=== PATIENT | female | born 1960 | race Caucasian/White ===

== ENCOUNTER 2016-07-23 12:44 | Emergency (ER) | payer BC ==
[2016-07-23 12:57] VITALS: BP 134/81
--- NOTE | 2016-07-23 13:22 | EDM.PDOC ---
ED HPI GENERAL MEDICAL PROBLEM - General Chief Complaint: General Stated Complaint: COLD?/ Time Seen by Provider: 07/23/16 13:00 Source of Information: Reports: Patient - History of Present Illness INITIAL COMMENTS - FREE TEXT/NARRATIVE: Patient comes in today with complaints of cough runny nose headache chills and low-grade fever over the last 48 hours. She was seen in clinic approximately 2 weeks ago with influenza-type symptoms and was treated with Tamiflu. Her influenza test was negative at the time. She reports she felt much better. Once again she started feeling sick again and reports that her work made her come in to get evaluated and seen in she wasn't going to come to work today. She has no other complaints of voice. She is a pack-a-day smoker. He denies any abdominal pain no nausea or vomiting, no diarrhea, no GI symptoms. Her cough has been nonproductive. She is treated her symptoms with DayQuil, NyQuil and Tylenol. This is given her some relief of her symptoms. Onset: gradual Onset Date: 07/21/16 Duration: Day(s):, Constant Location: Reports: head, face Quality: Reports: Ache Severity: moderate Improves with: Reports: Rest Worsens with: Reports: Movement Associated Symptoms: Reports: cough, fever/chills, headaches, loss of appetite. Denies: confusion, chest pain, cough w sputum, diaphoresis, nausea/vomiting, shortness of breath Treatments WOOL BROKER: Reports: Acetaminophen, Other (see below) Other Treatments WOOL BROKER: day quil, nyquil Bilateral Ear Pain Score (Numeric/FACES): 8 - Related Data Allergies Allergy/AdvReac Type Severity Reaction Status Date / Time Penicillins Allergy Anaphylactic Verified 07/23/16 12:57 Shock Home Meds: Home Meds Multivit-Min/FA/Lycopene/Lut [Centrum Silver] 1 tab PO DAILY 05/13/14 [History] Realitos-3/DHA/Epa/Fish Oil [Fish Oil 1,000 mg Softgel] 1 each PO TID 05/13/14 [ History] Ondansetron [IJD: Ondansetron ODT] 4 mg PO Q4H PRN 07/23/16 [History] Social & Family History - Tobacco Use Smoking Status *Q: Current Every Day Smoker Years of Tobacco use: 42 Packs/Tins Daily: 1 Second Hand Smoke Exposure: Yes - Caffeine Use Caffeine Use: Reports: Coffee, Tea - Alcohol Use Days Per Week of Alcohol Use: 1 Number of Drinks Per Day: 1 Total Drinks Per Week: 1 - Recreational Drug Use Recreational Drug Use: Yes Drug Use in Last 12 Months: No Recreational Drug Type: Reports: Amphetamines (Speed), Barbituates, Benzodiazepines, Cocaine, Codiene, LSD (Acid), Marijuana/Hashish, Mescaline, Psilocybin (Mushrooms) - Living Situation & Occupation Living situation: Reports: single (2 children), with family (lives with 28-year- old son) 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 ED EXAM, GENERAL - Physical Exam Exam: See Below Exam Limited By: No limitations General Appearance: alert, WD/WN, no apparent distress Eye Exam: bilateral eye: EOMI, PERRL Ears: normal external exam, normal canal, hearing grossly normal, other (there is mild redness in the left ear but the TMs are clearly present as well as a bony markings) Ear Exam: left ear: TM red, right ear: TM normal Nose: normal inspection, normal mucosa, no blood Throat/Mouth: Normal inspection, Normal lips, Normal gums, Normal oropharynx, Normal voice, No airway compromise, Other (dentures) Head: atraumatic, normocephalic, sinus tenderness. No: facial swelling Neck: normal inspection, supple, non-tender, full range of motion. No: lymphadenopathy (L), lymphadenopathy (R) Respiratory/Chest: no respiratory distress, lungs clear, normal breath sounds, no accessory muscle use Cardiovascular: normal peripheral pulses, regular rate, rhythm, no murmur GI/Abdominal: normal bowel sounds, soft, non tender, no organomegaly, no distention, no mass Back Exam: normal inspection Extremities: normal inspection, normal range of motion Neurological: alert, oriented, normal cognition, normal gait Psychiatric: normal affect, depressed mood Skin Exam: Warm, Dry, Intact, Normal color, No rash Lymphatic: no adenopathy Course - Vital Signs Last Recorded V/S: Last Vital Signs Temp 97.6 F 07/23/16 12:48 Pulse 77 07/23/16 12:48 Resp 18 07/23/16 12:48 BP 134/81 07/23/16 12:48 Pulse Ox 97 07/23/16 12:48 Departure - Departure Time of Disposition: 14:02 Disposition: Home, Self-Care 01 Condition: good Clinical Impression: Upper respiratory infection Qualifiers: URI type: unspecified viral URI Qualified Code(s): J06.9 - Acute upper respiratory infection, unspecified; B97.89 - Other viral agents as the cause of diseases classified elsewhere Forms: ED Department Discharge - Assessment/Plan Assessment:: Upper respiratory infection viral Plan: 1. rest 2. Push oral hydration 3. Symptomatic treatment with use of DayQuil, NyQuil, Tylenol 4. Talked with the patient about smoking cessation. 5. Followup with your primary care if symptoms persist throughout next week if no improvement.
== END 2016-07-23 14:15 | disposition home or self-care (01) ==
LOC: KA.ED 12:44
DX: J06.9 Acute upper respiratory infection, unspecified (principal); B97.89 Other viral agents as the cause of diseases classified elsewhere; F17.210 Nicotine dependence, cigarettes, uncomplicated
CPT/HCPCS: 36415; 85025; 87804; 99283

== ENCOUNTER 2017-05-03 13:35 | Emergency (ER) | payer BC, MEDICAID ==
[2017-05-03] MEDS ORDERED: Lidocaine 1% 20 ML MDV INJECT ONE (14:00)
[2017-05-03 14:08] VITALS: BP 144/88
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
[2017-05-03] MEDS ORDERED: Lidocaine 1% 20 ML MDV ONE (14:31)
[2017-05-03] MEDS ORDERED: Bacitracin/Neomycin/Polymyxin B Oint 0.9 GM U/D Packet ONE (14:34)
[2017-05-03] MEDS ORDERED: Bacitracin/Neomycin/Polymyxin B Oint 0.9 GM U/D Packet TOP ONE (14:59)
[2017-05-03] MEDS ORDERED: Diphtheria,Pertussis(Acell),Tetanus Vaccine 0.5 ML SDV IM ONE (14:59)
== END 2017-05-03 15:15 | disposition home or self-care (01) ==
LOC: KA.ED 13:35
DX: S61.250A Open bite of right index finger without damage to nail, initial encounter (principal); F32.9 Major depressive disorder, single episode, unspecified; F17.210 Nicotine dependence, cigarettes, uncomplicated; Z88.0 Allergy status to penicillin; Z79.899 Other long term (current) drug therapy; Z23 Encounter for immunization; W54.0XXA Bitten by dog, initial encounter
CPT/HCPCS: 73090-RT; 73140-F6; 90471; 90715; 99283

== ENCOUNTER 2017-07-16 09:09 | Day surgery (SDC) | payer BC, MEDICAID ==
[~2017-07-16 09:09] MED LIST: Lactated Ringers 1,000 ML IV SCH; Lactated Ringers 1,000 ML ONE; Sodium Chloride 0.9% 5 ML Syringe FLUSH PRN
[2017-07-16] MEDS ORDERED: Propofol 200 MG/20 ML SDV ONE (09:12)
[2017-07-16] MEDS ORDERED: fentaNYL 250 MCG/5 ML SDV ONE (09:12)
[2017-07-16] MEDS ORDERED: Sodium Chloride 0.9% 100 ML ONE (09:12)
[2017-07-16] MEDS ORDERED: Midazolam 1 MG/ML 2 ML SDV ONE (09:12)
[2017-07-16] MEDS ORDERED: Gentamicin 40 MG/ML 2 ML Vial ONE (09:12)
[2017-07-16] MEDS ORDERED: Bupivacaine 0.5%/EPINEPHrine 1:200,000 30 ML SDV ONE (09:33)
[2017-07-16] MEDS ORDERED: Midazolam 1 MG/ML 2 ML SDV IV ONE (10:40)
[2017-07-16] MEDS ORDERED: Neostigmine Methylsulfate 10 MG/10 ML MDV IV ONE (10:40)
[2017-07-16] MEDS ORDERED: Ondansetron 4 MG/2 ML SDV IV ONE (10:40)
[2017-07-16] MEDS ORDERED: Succinylcholine 200 MG/10 ML MDV IV ONE (10:40)
[2017-07-16] MEDS ORDERED: Gentamicin 40 MG/ML 2 ML Vial IV ONE (10:40)
[2017-07-16] MEDS ORDERED: Glycopyrrolate 0.2 MG/ML 5 ML MDV IV ONE (10:40)
[2017-07-16] MEDS ORDERED: fentaNYL 250 MCG/5 ML SDV IV ONE (10:40)
[2017-07-16] MEDS ORDERED: Propofol 200 MG/20 ML SDV IV ONE (10:40)
[2017-07-16] MEDS ORDERED: Rocuronium 50 MG/5 ML Vial IV ONE (10:40)
[2017-07-16] MEDS ORDERED: Dexamethasone 4 MG/ML SDV IV ONE (10:40)
[2017-07-16] MEDS ORDERED: Lactated Ringers 1,000 ML ONE (10:48)
[2017-07-16] MEDS ORDERED: Dexamethasone 4 MG/ML SDV ONE (10:48)
[2017-07-16] MEDS ORDERED: Bupivacaine 0.5%/EPINEPHrine 1:200,000 30 ML SDV INFILT ONE ×2 (10:59)
[2017-07-16] MEDS ORDERED: Morphine 4 MG/ML Syringe IVPUSH PRN (11:24)
[2017-07-16] MEDS ORDERED: Ondansetron 4 MG/2 ML SDV IVPUSH PRN (11:24)
[2017-07-16] MEDS ORDERED: Morphine 2 MG/ML Syringe IVPUSH PRN (11:25)
[2017-07-16] MEDS ORDERED: fentaNYL 100 MCG/2 ML SDV IVPUSH PRN (11:25)
--- NOTE | 2017-07-16 12:25 | PCM.OPNOTE ---
- General Post-Op/Procedure Note Date of Surgery/Procedure: 07/16/17 Operative Procedure(s): Laparoscopic cholecystectomy and removal of umbilical ring Findings: This patient has a history of hepatitis C for last 19 years. Recently she has had problems with acute and chronic cholecystitis. She underwent an ERCP which showed sludge in the gallbladder. Since she is symptomatic, laparoscopy cholecystectomy has been advised for this patient. Pre Op Diagnosis: Chronic cholecystitis Anesthesia Technique: General ET Tube Primary Surgeon: Kamilla Willson Condition: Good Free Text/Narrative:: INFORMED CONSENT: This patient is here today because of chronic cholecystitis and cholelithiasis. The operative procedure is laparoscopic cholecystectomy. The operative procedure and risks were discussed including all possible complications including infection, pain, bleeding, bile duct injury, internal organ injury, conversion to open procedure, reoperation, PE, . Anesthetic complications were handled by ARTERIAL EMBALMER. The patient understands well and wishes to proceed. OPERATION PERFORMED: Laparoscopic cholecystectomy, removal of subcutaneous ornamental umbilical ring. PROCEDURE: The patient was kept in the supine position and a satisfactory general anesthetic was administered via endotracheal tube. The abdomen was thoroughly prepped and draped in the usual fashion. A small incision was made and the ornamental supraumbilical ring was removed. The subumbilical fold was infiltrated with 1 mL of Marcaine 0.5% and a curvilinear incision was made. The incision was deepened through the subcutaneous tissue until we came down upon the fascial layer. We then held the fascial layer with two Priyanka clamps and dissected down into into the peritoneal cavity.This was followed by a 5/12.5 trocar and insufflation with CO2 gas until an intra-abdominal pressure of approximately 13 mmHg was obtained. A camera was then placed into the peritoneal cavity. Inspection revealed a chronically inflamed gallbladder with some omental adhesions. The omental pad was quite thick. The rest of the abdominal contents were normal to visualization. Two 5 mm trocars were placed in the right hypochondriac region, one in the right midclavicular and the second on the anterior clavicle line and a third 11.5 trocar was inserted in the subxiphoid position under direct vision. The patient was then kept in the reverse Trendelenburg position with a slight tilt to the left side. The two ratchets were placed one on the fundus and one at the neck of the gallbladder. Dissection was begun at the neck of the gallbladder and the fat in this area was quite immense. We carefully dissected out the cystic artery and cystic duct separately and encircled both structures at approximately 1 to 1-1/2 cm. We ligated each structure separately using endo clips after obtaining a clear view JIM [place]ALLS 10/10.. When ligating the cystic duct we made sure not to encroach upon the common duct in any way. We then used a hook cautery and gently dissected the gallbladder off its bed. The base gallbladder fossa was gently cauterized for additional hemostasis. The gallbladder was retrieved through the umbilical port. The dallin hepatis was thoroughly irrigated with normal saline, most of which was aspirated out. The abdomen was then slowly deflated and prior to removal of the last trocar we completely deflated the abdomen. The trocar sites were washed with Betadine solution and the fascial layer was closed with 0 Polysorb and the skin was closed using 4.0 Polysorb in a subcuticular fashion. We then instilled approximately 20 mL of Marcaine 0.5% with epinephrine between the four sites. Sterile pressure dressings were applied. The patient tolerated the procedure well. There were no operative complications. Sponge, needle, and instrument count were correct.
[2017-07-16] MEDS ORDERED: Ketorolac 30 MG/ML SDV IVPUSH PRN (13:35)
[2017-07-16 15:52] VITALS: BP 106/65
== END 2017-07-16 15:45 | disposition home or self-care (01) ==
LOC: KA.SDS 09:09
PROVIDERS: ATTEND Family Medicine
DX: K81.1 Chronic cholecystitis (principal); K82.8 Other specified diseases of gallbladder; F41.9 Anxiety disorder, unspecified; B18.2 Chronic viral hepatitis C; Z88.0 Allergy status to penicillin; Z88.8 Allergy status to other drugs, medicaments and biological substances; Z91.040 Latex allergy status; F17.200 Nicotine dependence, unspecified, uncomplicated; Z79.899 Other long term (current) drug therapy
CPT/HCPCS: 36415; 85610; 85730; A9270-GY; J0330; J1100; J1580; J1885; J2250; J2270; J2405; J2704; J2710; J3010; J3490; J7120

== ENCOUNTER 2020-04-21 08:59 | Day surgery (SDC) | payer BC ==
[2020-04-21] MEDS ORDERED: Sodium Chloride 0.9% 10 ML Syringe FLUSH PRN (09:00)
[2020-04-21] MEDS: Lactated Ringers 1,000 ML IV SCH (09:45)
[2020-04-21] MEDS ORDERED: Propofol 200 MG/20 ML SDV ONE (11:09)
[2020-04-21] MEDS ORDERED: Midazolam 1 MG/ML 2 ML SDV ONE (11:09)
[2020-04-21] MEDS ORDERED: EPINEPHrine 1:10,000 1 MG/10 ML Syringe ONE (11:14)
[2020-04-21] MEDS ORDERED: Propofol 200 MG/20 ML SDV IV ONE (11:17)
[2020-04-21] MEDS ORDERED: Midazolam 1 MG/ML 2 ML SDV IV ONE (11:17)
--- NOTE | 2020-04-21 11:49 | PCM.OPNOTE ---
- General Post-Op/Procedure Note Date of Surgery/Procedure: 04/21/20 Operative Procedure(s): Upper gastrointestinal endoscopy, biopsies and application of resolution clip Findings: Small hiatal hernia and an abnormal lesion were noted along the greater curvature. Biopsies were taken. Pre Op Diagnosis: Persistent epigastric and upper abdominal discomfort. Status postcholecystectomy. Post-Op Diagnosis: Mild reflux esophagitis and abnormal lesion of the stomach along the greater curvature. Anesthesia Technique: [facility] [place] Primary Surgeon: Kamilla Willson Condition: Good Free Text/Narrative:: INFORMED CONSENT: Patient is here today for elective upper GI endoscopy. All aspects of this procedure have been discussed with the patient. All possible complications also, including possibility of perforation, infection, pain, bleeding, numbness of the throat, swallowing difficulty and unknown complications. In the event of perforation the patient may need surgical exploration to repair the defect. The patient understands fully well. Patient did not have any further questions for me at the end of my interview. The patient wishes for me to proceed. INSTRUMENT USED: Video gastroscope ANESTHESIA: [Mac] ASA CLASSIFICATION: [1] PROCEDURE PERFORMED: [Upper gastrointestinal endoscopy and biopsies and application of resolution clip] PHARYNX: Normal. ESOPHAGUS: Normal. Proximal: Normal. Middle: Normal. Lower: Normal. GE Junction: Normal mild changes of reflux esophagitis in a 5 cm hiatal hernia noted.. STOMACH: Normal. Cardia: Normal. Fundus: Normal. Lesser Curvature: Normal. Greater Curvature: An abnormal area was identified. Biopsies were taken. Resolution clip was placed to avoid bleeding.. Antrum: Normal. Pylorus: Normal. DUODENUM: Normal. First Part: Normal. Second Part: Normal. Third Part: Normal. RETROFLEXION: Normal. BIOPSY: None. TOLERANCE: Excellent. COMPLICATIONS: None. Abnormal lesion of the greater curvature, biopsy taken, small hiatal hernia with mild inflammation.
[2020-04-21 12:31] VITALS: BP 105/81; PULSE 83
== END 2020-04-21 12:45 | disposition home or self-care (01) ==
LOC: KA.SDS 08:59
PROVIDERS: ATTEND Family Medicine
DX: K31.7 Polyp of stomach and duodenum (principal); K73.9 Chronic hepatitis, unspecified; F41.9 Anxiety disorder, unspecified; Z79.899 Other long term (current) drug therapy; Z79.82 Long term (current) use of aspirin; Z88.5 Allergy status to narcotic agent; Z88.0 Allergy status to penicillin; Z91.040 Latex allergy status
CPT/HCPCS: 00731; J2250; J2704; J7120